=== PATIENT | female | born 1945 | race Caucasian/White ===

== ENCOUNTER 2016-12-11 19:01 | Emergency (ER) | payer MEDICARE, BC ==
[2016-12-11] MEDS ORDERED: SODIUM CHLORIDE 0.9% 1,000 ML IV STA (19:25)
[2016-12-11] MEDS ORDERED: MECLIZINE 12.5 MG TAB PO STA (19:25)
--- NOTE | 2016-12-11 19:31 | ED ---
Dizziness HPI - General Chief Complaint: Dizziness Stated Complaint: dizziness Time Seen by Provider: 12/11/16 19:01 Source: patient, EMS, RN notes reviewed Mode of arrival: EMS - History of Present Illness Initial Comments: This is a 71 no cough no phlegm production no dysuria.-year-old female with a usual history of low blood pressure who was driving into town from her home which she started feeling a sudden wave of dizziness. She states she managed to get through a local urgent care and was evaluated she is found have a blood pressure of 201/89. It later came down 176/82 and later to 150 systolic. She has some nausea she did get Zofran per EMS. She has some blurred vision she denies any headache focal loss of function to her upper or lower extremities. She denies any recent fevers chills nausea vomiting sweats rhinorrhea year pain a recent change in medications. She recently did have a normal physical exam from her doctor. No history of stroke head injury or other symptoms. She is feeling somewhat better now but does get dizzy with moving her eyes and head. MD Complaint: dizziness, lightheadedness - Related Data Previous Rx's Medication Instructions Recorded Meclizine [Antivert] 25 mg PO TID #20 tab 12/11/16 Allergies Allergy/AdvReac Type Severity Reaction Status Date / Time NSAIDS (Non-Steroidal Allergy Rash/Hives Verified 12/11/16 19:08 Anti-Inflamma Review of Systems ROS Statement: Those systems with pertinent positive or pertinent negative responses have been documented in the HPI. ROS Other: All systems not noted in ROS Statement are negative. Past Medical History Past Medical History: Hyperlipidemia, Osteoarthritis (OA), Pneumonia, Thyroid Disorder Past Surgical History: Appendectomy, Section, Cholecystectomy, Hysterectomy, Orthopedic Surgery Additional Past Surgical History / Comment(s): left total knee Past Psychological History: No Psychological Hx Reported Smoking Status: Never smoker Past Alcohol Use History: None Reported Past Drug Use History: None Reported General Exam - General Exam Comments Initial Comments: This is a well-developed well-nourished awake alert oriented x 3 female General appearance: alert, in no apparent distress Head exam: Present: atraumatic, normocephalic, normal inspection Eye exam: Present: normal appearance, PERRL, EOMI. Absent: scleral icterus, conjunctival injection, periorbital swelling ENT exam: Present: normal exam, mucous membranes moist Neck exam: Present: normal inspection. Absent: tenderness, meningismus, lymphadenopathy Respiratory exam: Present: normal lung sounds bilaterally. Absent: respiratory distress, wheezes, rales, rhonchi, stridor Cardiovascular Exam: Present: regular rate, normal rhythm, normal heart sounds. Absent: systolic murmur, diastolic murmur, rubs, gallop, clicks GI/Abdominal exam: Present: soft, normal bowel sounds. Absent: distended, tenderness, guarding, rebound, rigid Extremities exam: Present: normal inspection, full ROM, normal capillary refill. Absent: tenderness, pedal edema, joint swelling, calf tenderness Back exam: Present: normal inspection Neurological exam: Present: alert, oriented X3, CN II-XII intact, other ( Reproducible dizziness with eye/head movement) Psychiatric exam: Present: normal affect, normal mood Skin exam: Present: warm, dry, intact, normal color. Absent: rash Course Vital Signs 12/11/16 12/11/16 19:08 20:07 Temperature 97.8 F Pulse Rate 67 65 Respiratory 20 20 Rate Blood Pressure 181/85 189/77 O2 Sat by Pulse 97 98 Oximetry EKG Findings - EKG Results: EKG: interpreted by ERMD, sinus rhythm (Sinus rhythm with rate 71 ND interval 202 QRS of 74 QT/QTC of 440/478 st-t wave changes.) Medical Decision Making - Medical Decision Making The patient is feeling improved at this time she is responding to the Antivert I did a long discussion with her and a friend were present patient be discharged she is not to drive any motor vehicles or operate machinery until the symptoms aren't ago where Dr. Navarro clears her. She'll be placed on Antivert she is follow-up with her doctor and return when necessary - Lab Data Result diagrams: 12/11/16 19:13 12/11/16 19:13 Lab Results 12/11/16 12/11/16 12/11/16 Range/Units 19:13 19:13 19:13 WBC 6.4 (3.8-10.6) k/uL RBC 4.10 (3.80-5.40) m/uL Hgb 12.7 (11.4-16.0) gm/dL Hct 37.1 (34.0-46.0) % MCV 90.5 (80.0-100.0) fL MCH 31.0 (25.0-35.0) pg MCHC 34.2 (31.0-37.0) g/dL RDW 12.8 (11.5-15.5) % Plt Count 235 (150-450) k/uL Neutrophils % 51 % Lymphocytes % 38 % Monocytes % 5 % Eosinophils % 3 % Basophils % 0 % Neutrophils # 3.3 (1.3-7.7) k/uL Lymphocytes # 2.5 (1.0-4.8) k/uL Monocytes # 0.3 (0-1.0) k/uL Eosinophils # 0.2 (0-0.7) k/uL Basophils # 0.0 (0-0.2) k/uL Sodium 143 (137-145) mmol/L Potassium 4.3 (3.5-5.1) mmol/L Chloride 108 H (98-107) mmol/L Carbon Dioxide 27 (22-30) mmol/L Anion Gap 8 mmol/L BUN 13 (7-17) mg/dL Creatinine 0.60 (0.52-1.04) mg/dL Est GFR (MDRD) Af Amer >60 (>60 ml/min/1.73 sqM) Est GFR (MDRD) Non-Af >60 (>60 ml/min/1.73 sqM) Glucose 95 (74-99) mg/dL Calcium 9.3 (8.4-10.2) mg/dL Magnesium 2.2 (1.6-2.3) mg/dL Total Bilirubin 0.5 (0.2-1.3) mg/dL AST 14 (14-36) U/L ALT 26 (9-52) U/L Alkaline Phosphatase 98 (38-126) U/L Total Creatine Kinase 44 (30-135) U/L CK-MB (CK-2) 0.5 (0.0-2.4) ng/mL CK-MB (CK-2) Rel Index 1.1 Troponin I <0.012 (0.000-0.034) ng/mL Total Protein 6.6 (6.3-8.2) g/dL Albumin 4.0 (3.5-5.0) g/dL Urine Color Urine Appearance (Clear) Urine pH (5.0-8.0) Ur Specific Champion (1.001-1.035) Urine Protein (Negative) Urine Glucose (UA) (Negative) Urine Ketones (Negative) Urine Blood (Negative) Urine Nitrite (Negative) Urine Bilirubin (Negative) Urine Urobilinogen (<2.0) mg/dL Ur Leukocyte Esterase (Negative) 12/11/16 Range/Units 19:59 WBC (3.8-10.6) k/uL RBC (3.80-5.40) m/uL Hgb (11.4-16.0) gm/dL Hct (34.0-46.0) % MCV (80.0-100.0) fL MCH (25.0-35.0) pg MCHC (31.0-37.0) g/dL RDW (11.5-15.5) % Plt Count (150-450) k/uL Neutrophils % % Lymphocytes % % Monocytes % % Eosinophils % % Basophils % % Neutrophils # (1.3-7.7) k/uL Lymphocytes # (1.0-4.8) k/uL Monocytes # (0-1.0) k/uL Eosinophils # (0-0.7) k/uL Basophils # (0-0.2) k/uL Sodium (137-145) mmol/L Potassium (3.5-5.1) mmol/L Chloride (98-107) mmol/L Carbon Dioxide (22-30) mmol/L Anion Gap mmol/L BUN (7-17) mg/dL Creatinine (0.52-1.04) mg/dL Est GFR (MDRD) Af Amer (>60 ml/min/1.73 sqM) Est GFR (MDRD) Non-Af (>60 ml/min/1.73 sqM) Glucose (74-99) mg/dL Calcium (8.4-10.2) mg/dL Magnesium (1.6-2.3) mg/dL Total Bilirubin (0.2-1.3) mg/dL AST (14-36) U/L ALT (9-52) U/L Alkaline Phosphatase (38-126) U/L Total Creatine Kinase (30-135) U/L CK-MB (CK-2) (0.0-2.4) ng/mL CK-MB (CK-2) Rel Index Troponin I (0.000-0.034) ng/mL Total Protein (6.3-8.2) g/dL Albumin (3.5-5.0) g/dL Urine Color Colorless Urine Appearance Clear (Clear) Urine pH 5.0 (5.0-8.0) Ur Specific Champion 1.004 (1.001-1.035) Urine Protein Negative (Negative) Urine Glucose (UA) Negative (Negative) Urine Ketones Negative (Negative) Urine Blood Negative (Negative) Urine Nitrite Negative (Negative) Urine Bilirubin Negative (Negative) Urine Urobilinogen <2.0 (<2.0) mg/dL Ur Leukocyte Esterase Negative (Negative) - Radiology Data Radiology results: report reviewed (I did review the imaging and reports no acute findings.), image reviewed Disposition Clinical Impression: Benign paroxysmal positional vertigo Disposition: HOME SELF-CARE Condition: Good Instructions: Dizziness (ED), Benign Paroxysmal Positional Vertigo (ED) Prescriptions: Meclizine [Antivert] 25 mg PO TID #20 tab Referrals: Laith Navarro MD [Primary Care Provider] - 1-2 days
[2016-12-11 19:55] LABS: Basophils % (A) 0 %; CH 30.5; CHCM 33.8; Eosinophils # (A) 0.2 k/uL (0-0.7); Eosinophils % (A) 3 %; HCT 37.1 % (34.0-46.0); HDW 2.43; HGB 12.7 gm/dL (11.4-16.0); Luc # (Auto) 0.16; Luc % (Auto) 3; Lymphocytes # (A) 2.5 k/uL (1.0-4.8); Lymphocytes % (A) 38 %; MCHC 34.2 g/dL (31.0-37.0); MCV 90.5 fL (80.0-100.0); Mean Platelet Volume 8.1; Monocytes # (A) 0.3 k/uL (0-1.0); Monocytes % (A) 5 %; Neutrophils # (A) 3.3 k/uL (1.3-7.7); Neutrophils % (A) 51 %; RDW 12.8 % (11.5-15.5); WBC 6.4 k/uL (3.8-10.6); WBC (Perox) 7.18
[2016-12-11 20:06] LABS: ALT 26 U/L (9-52); AST 14 U/L (14-36); Alkaline Phosphatase 98 U/L (38-126); Anion Gap 8 mmol/L; Blood Urea Nitrogen 13 mg/dL (7-17); Calcium 9.3 mg/dL (8.4-10.2); Carbon Dioxide 27 mmol/L (22-30); Chloride 108 mmol/L (98-107); Glucose 95 mg/dL (74-99); Magnesium 2.2 mg/dL (1.6-2.3); Non-African American GFR(MDRD) >60 (>60 ml/min/1.73 sqM); Potassium 4.3 mmol/L (3.5-5.1); Sodium 143 mmol/L (137-145); Total Bilirubin 0.5 mg/dL (0.2-1.3); Total Protein 6.6 g/dL (6.3-8.2)
[2016-12-11 20:11] VITALS: PULSE 65
[2016-12-11 20:17] LABS: Creatine Kinase 44 U/L (30-135)
[2016-12-11 20:25] LABS: Appearance,Urine Clear (Clear); Bilirubin,Urine Negative (Negative); Glucose,Urine (UA) Negative (Negative); Ketones,Urine Negative (Negative); Leukocyte Esterase,Urine Negative (Negative); Nitrite,Urine Negative (Negative); Protein,Urine Negative (Negative); Specific Gravity,Urine 1.004 (1.001-1.035); UA Billing (MACRO vs. MICRO) CHEM; Urobilinogen,Urine <2.0 mg/dL (<2.0)
[2016-12-11 20:30] LABS: Creatine Kinase MB 0.5 ng/mL (0.0-2.4); Troponin I <0.012 ng/mL (0.000-0.034)
--- NOTE | 2016-12-11 20:30 | CT ---
EXAMINATION TYPE: CT brain wo con DATE OF EXAM: 12/11/2016 8:23 PM COMPARISON: NONE HISTORY: Episode of visual disturbance and dizziness CT DLP: 1017.9 mGycm Automated exposure control for dose reduction was used. FINDINGS: The ventricles have normal size. There is no mass effect nor midline shift. There is no sign of intra cranial hemorrhage. The calvarium is intact. There is mucosal thickening in the left maxillary sinus. IMPRESSION: Mild atrophy. Mild left maxillary sinusitis. No acute intracranial abnormality.
[2016-12-11 21:16] VITALS: BP 177/76; RESP 16; TEMP 97.6
== END 2016-12-11 21:56 | disposition home or self-care (01) ==
LOC: EC 19:01
DX: H81.10 Benign paroxysmal vertigo, unspecified ear (principal); R42 Dizziness and giddiness; Z88.6 Allergy status to analgesic agent
CPT/HCPCS: 36415; 70450; 80053; 81003; 82550; 82553; 83735; 84484; 85025; 93005; 96360; 96361; 99285

== ENCOUNTER → 2019-02-19 | Outpatient (CLI) | payer MEDICARE, BC ==
[2019-02-19 13:21] LABS: HCT 40.2 % (34.0-46.0); HGB 12.6 gm/dL (11.4-16.0); MCH 29.9 pg (25.0-35.0); MCHC 31.4 g/dL (31.0-37.0); MCV 95.2 fL (80.0-100.0); Mean Platelet Volume 8.1; Platelet Count 255 k/uL (150-450); RBC 4.22 m/uL (3.80-5.40); RDW 12.9 % (11.5-15.5); WBC 7.2 k/uL (3.8-10.6)
--- NOTE | 2019-02-19 13:22 | BD ---
EXAMINATION TYPE: Axial Bone Density DATE OF EXAM: 02/19/2019 COMPARISON: NONE CLINICAL HISTORY: Height: 60.25 Weight: 170 FRAX RISK QUESTIONS: Alcohol (3 or more units per day): no Family History (Parent hip fracture): no Glucocorticoids (More than 3mos): no (Ex: prednisone, prednisolone, methylprednisolone, dexamethasone, and hydrocortisone). History of Fracture in Adulthood: unsure Secondary Osteoporosis: 1. Type 1 Diabetes: no 2. Hyperthyroidism: no 3. Menopause before 45: yes 4. Malnutrition: no 5. Chronic liver disease: no Rheumatoid Arthritis: no Current Tobacco Use: no RISK FACTORS HISTORY OF: Spine Fracture: unsure Family History of Osteoporosis: unsure Active: somewhat Diet low in dairy products/other sources of calcium: a couple servings a week Postmenopausal woman: yes Take estrogen and/or progesterone medications: no Lost more than 2 inches in height since high school: no Frequent falls: no Poor Health: no Hyperparathyroidism: no Adrenal Insufficiency: no MEDICATIONS: Prednisone or other steroids: unsure Thyroid Medications: yes Which medication: Levothyroxine How Long: over 20 years Osteoporosis Medications: no Additional Medications: cholesterol med Additional History: patient fell a few months ago & injured lower back...had X-Rays at office of phys ician-patient is unsure if there is a fracture. Knee replacement EXAM MEASUREMENTS: Bone mineral densitometry was performed using the [facility]. Bone mineral density as measured about the Lumbar spine is: ----- L1-L4(G/cm2): 1.242 T Score Values are as follows: ----- L2: 0.1 ----- L3: 1.1 ----- L4: 1.1 ----- L1-L4: 0.5 No record of previous Bone Density study at this facility Bone mineral density about the R hip (g/cm2): 0,815 Bone mineral density about the L hip (g/cm2): 0.926 T Score values are as follows: -----R Neck: -1.6 -----L Neck: -0.8 -----R Total: -0.9 -----L Total: -0.2 No record of previous Bone Density study at this facility IMPRESSION: No evidence for osteoporosis or osteopenia. NOTE: T-SCORE=SD OF THE YOUNG ADULT MEAN.
[2019-02-19 13:27] LABS: Appearance,Urine Clear (Clear); Bacteria,Urine Rare /hpf; Bilirubin,Urine Negative (Negative); Blood,Urine Negative (Negative); Color,Urine Yellow; Glucose,Urine (UA) Negative (Negative); Ketones,Urine Negative (Negative); Leukocyte Esterase,Urine Small (Negative); Mucus,Urine Rare /hpf; Nitrite,Urine Negative (Negative); Protein,Urine Negative (Negative); RBC,Urine 2 /hpf (0-5); Specific Gravity,Urine 1.018 (1.001-1.035); Urobilinogen,Urine <2.0 mg/dL (<2.0); WBC,Urine 4 /hpf (0-5)
[2019-02-19 13:28] LABS: ALT 19 U/L (9-52); AST 18 U/L (14-36); African American GFR (CKD) >90 (>60 ml/min/1.73 sqM); Albumin 4.1 g/dL (3.5-5.0); Alkaline Phosphatase 92 U/L (38-126); Anion Gap 8 mmol/L; Blood Urea Nitrogen 14 mg/dL (7-17); Calcium 9.4 mg/dL (8.4-10.2); Carbon Dioxide 29 mmol/L (22-30); Chloride 105 mmol/L (98-107); Cholesterol 157 mg/dL (<200); Glucose 102 mg/dL (74-99); HDL Cholesterol 60 mg/dL (40-60); LDL Cholesterol,Calculated 76 mg/dL (0-99); Non-African American GFR(CKD) 86 (>60 ml/min/1.73 sqM); Sodium 142 mmol/L (137-145); Total Bilirubin 0.6 mg/dL (0.2-1.3); Total Protein 6.6 g/dL (6.3-8.2); Triglycerides 107 mg/dL (<150)
[2019-02-19 13:45] LABS: T4, Free (Free Thyroxine) 1.56 ng/dL (0.78-2.19)
--- NOTE | 2019-02-20 13:46 | MM ---
Reason for exam: screening (asymptomatic). Last mammogram was performed 14 years and 2 months ago. History: Patient is postmenopausal. Reduction of the left breast. Reduction of the right breast. 3 excisional biopsies of the left breast. 2 excisional biopsies of the right breast. Took estrogen for 8 years 1 month. Physical Findings: A clinical breast exam by your physician is recommended on an annual basis and results should be correlated with mammographic findings. MG 3D Screening Mammo W/Cad Bilateral CC and MLO view(s) were taken. Prior study comparison: December 17, 2004, bilateral screening mammogram. November 20, 2001, bilateral screening mammogram. There are scattered fibroglandular densities. Benign appearing bilateral calcifications. There is no discrete abnormality. ASSESSMENT: Benign, BI-RAD 2 RECOMMENDATION: Routine screening mammogram of both breasts in 1 year.
== END | disposition home or self-care (01) ==
LOC: RADMAMWWP 09:55
PROVIDERS: ATTEND Internal Medicine
DX: Z12.31 Encounter for screening mammogram for malignant neoplasm of breast (principal); Z78.0 Asymptomatic menopausal state; I10 Essential (primary) hypertension; E78.5 Hyperlipidemia, unspecified; K58.9 Irritable bowel syndrome, unspecified; G89.29 Other chronic pain; E03.9 Hypothyroidism, unspecified
CPT/HCPCS: 77063; 77067; 77080; 80053; 80061; 81001; 84439; 84443; 85027

== ENCOUNTER → 2020-09-24 | Outpatient (CLI) | payer MEDICARE, BC ==
--- NOTE | 2020-09-24 11:14 | XR ---
EXAMINATION TYPE: XR shoulder limited RT DATE OF EXAM: 09/24/2020 CLINICAL HISTORY: History of dislocated shoulder and surgery in the past with pain after fall injury. TECHNIQUE: 2 views of the right shoulder are obtained. COMPARISON: Right shoulder x-rays December 06, 2009.. FINDINGS: There is no acute fracture/dislocation evident in the right shoulder currently. Moderate t o severe narrowing of the glenohumeral joint with mild/moderate spurring. Mild to moderate narrowing and spurring at acromioclavicular joint. The visualized ribs are intact . IMPRESSION: As above.
--- NOTE | 2020-09-24 11:54 | XR ---
EXAMINATION TYPE: XR lumbar spine 2 or 3V DATE OF EXAM: 09/24/2020 CLINICAL HISTORY: Fall injury with low back pain. TECHNIQUE: Frontal and lateral images of the lumbar spine are obtained. COMPARISON: CT December 02, 2011 FINDINGS: There are 5 lumbar type vertebral bodies redemonstrated. The lumbar spine redemonstrates satisfactory alignment without evidence of acute fracture or dislocation. Vertebral body heights and disk space heights remain within normal limits. Focal mild to moderate multilevel anterior and latera l spurring. Multilevel facet arthropathy in mid to lower lumbar spine redemonstrated. Some endplate s clerosis seen on current study anterior L1-L2 level. Mild to moderate vascular calcification of overl jonelle abdominal aorta. IMPRESSION: As above.
== END ==
LOC: RADXRMAIN 10:35
PROVIDERS: ATTEND Family Medicine
DX: M54.5 Low back pain (principal); M25.511 Pain in right shoulder
CPT/HCPCS: 72100

== ENCOUNTER → 2022-04-14 | Outpatient (CLI) | payer MEDICARE, BC ==
--- NOTE | 2022-04-14 10:21 | CT ---
EXAMINATION TYPE: CT lumbar spine wo con DATE OF EXAM: 04/14/2022 9:57 AM COMPARISON: 12/02/2011 HISTORY: Acute lower back pain from fall. Stat hold and call CT DLP: 1003.10 mGycm Automated exposure control for dose reduction was used. Unenhanced CT of the lumbar spine was performed. Bone and soft tissue window settings are submitted as well as coronal and sagittal reconstructions. Sestamibi spinal canal limited due to resolution and artifact. L1-L2: Hypertrophic spurring and degenerative disc disease. No obvious canal stenosis or foraminal en croachment. L2-L3: Degenerative disc disease with hypertrophic facet arthropathy. Circumferential disc bulging wi th mild canal stenosis and bilateral foraminal encroachment. L3-L4: Degenerative disc disease with diffuse disc bulging and hypertrophic changes in the facets. Th ere is moderate canal stenosis and bilateral foraminal enlargement. L4-L5: Grade 1 anterior listhesis with severe facet arthropathy. There is diffuse disc bulging and se juan carlos canal stenosis with bilateral foraminal protrusion. L5-S1: No obvious canal stenosis. There is degenerative disc disease and advanced facet arthropathy. Neural foramina remain patent. No evidence of acute fracture. Atherosclerotic change aorta. SI joint arthropathy noted. IMPRESSION: 1. No acute fracture. 2. Multilevel degenerative disc disease and facet arthropathy with multilevel foraminal protrusion an d canal stenosis most marked at L4-L5 with a grade 1 anterior listhesis at this level. Recommend foll ow-up MRI.
== END | disposition home or self-care (01) ==
LOC: RADCTMAIN 09:30
PROVIDERS: ATTEND Family Medicine
DX: M43.16 Spondylolisthesis, lumbar region (principal); M51.26 Other intervertebral disc displacement, lumbar region; M48.061 Spinal stenosis, lumbar region without neurogenic claudication; M47.816 Spondylosis without myelopathy or radiculopathy, lumbar region; M51.36 Other intervertebral disc degeneration, lumbar region
CPT/HCPCS: 72131

== ENCOUNTER → 2024-08-13 | Outpatient (CLI) | payer MEDICARE ==
--- NOTE | 2024-08-13 17:05 | XR ---
EXAMINATION TYPE: XR chest 2V DATE OF EXAM: 08/13/2024 4:52 PM COMPARISON: Chest radiographs from 02/01/2013 CLINICAL INDICATION: Female, 79 years old with history of R05.9; [facility] TECHNIQUE: XR chest 2V Frontal and lateral views of the chest. FINDINGS: Lungs/Pleura: There is no evidence of pleural effusion, focal consolidation, or pneumothorax. Pulmonary vascularity: Unremarkable. Heart/mediastinum: Cardiomediastinal silhouette is unremarkable. Musculoskeletal: No acute osseous pathology. Midline sternotomy wires are noted. IMPRESSION: No acute cardiopulmonary disease/process. [facility], , 08/13/2024 5:03 PM
== END | disposition home or self-care (01) ==
LOC: RADXRMAIN 16:38
PROVIDERS: ATTEND Family Medicine
DX: R05.9 Cough, unspecified (principal)
CPT/HCPCS: 71046